=== PATIENT | female | born 1955 | race Caucasian/White ===

== ENCOUNTER → 2020-04-21 | Outpatient (CLI) | payer MEDICARE ==
--- NOTE | 2020-04-21 14:28 | RADIOLOGY REPORT (SQ) ---
EXAM DESCRIPTION: MRI RT LOWER EXTREMITY WITHOUT IMAGES COMPLETED DATE/TIME: 04/21/2020 12:49 pm REASON FOR STUDY: (S39.91XA)UNSPECIFIED INJURY OF ABDOMEN, INITIAL ENCOUNTER S39.91XA UNSPECIFIED I NJURY OF ABDOMEN, INITIAL ENCOUNTER COMPARISON: None. TECHNIQUE: Multiplanar imaging of the right thigh to include fat and fluid sensitive sequences. LIMITATIONS: Artifact from knee arthroplasty. FINDINGS: BONE MARROW: Normal. SOFT TISSUES: 2.9 X 3.0 X 13.0 CM hematoma in the gracilis muscle in the mid/distal thigh. Diffuse s ubcutaneous edema with sparing of posterior thigh. OTHER: No other significant finding. IMPRESSION: Grade 2 muscle strain gracilis muscle. TECHNICAL DOCUMENTATION: JOB ID: [id number] [employer]- All Rights Reserved Reading location - IP/workstation name: [email or web address]
== END ==
LOC: RAD 11:57
PROVIDERS: ATTEND Family Medicine
DX: S39.91XA Unspecified injury of abdomen, initial encounter (principal); X58.XXXA Exposure to other specified factors, initial encounter